=== PATIENT | male | born 1980 | race Caucasian/White ===

== ENCOUNTER 2023-03-02 06:02 | Inpatient (IN) ==
--- NOTE | 2023-02-06 12:53 | PAT Medication Instructions ---
Medication Instructions Date of Service February 06, 2023 Home Medications aripiprazole 10 mg tablet (Abilify) 10 mg PO HS buspirone 10 mg tablet 20 mg PO BID lamotrigine 100 mg tablet 100 mg PO BID losartan 50 mg tablet 50 mg PO QAM montelukast 10 mg tablet (Singulair) 10 mg PO PM omeprazole 40 mg capsule,delayed release 40 mg PO QAM propranolol 10 mg tablet 10 mg PO QAM topiramate 25 mg sprinkle capsule (Topamax) 25 mg PO UD ASK your prescriber and surgeon aripiprazole 10 mg tablet (Abilify) 10 mg PO HS DO NOT take the morning of surgery losartan 50 mg tablet 50 mg PO QAM Take morning of surgery With a small sip of water, OTHERWISE NOTHING TO EAT OR DRINK AFTER MIDNIGHT: buspirone 10 mg tablet 20 mg PO BID lamotrigine 100 mg tablet 100 mg PO BID omeprazole 40 mg capsule,delayed release 40 mg PO QAM propranolol 10 mg tablet 10 mg PO QAM topiramate 25 mg sprinkle capsule (Topamax) 25 mg PO UD Take evening before surgery buspirone 10 mg tablet 20 mg PO BID lamotrigine 100 mg tablet 100 mg PO BID montelukast 10 mg tablet (Singulair) 10 mg PO PM topiramate 25 mg sprinkle capsule (Topamax) 25 mg PO UD Other Notes If you have any questions please call us at [phone] or [phone] or [phone] or [phone]
--- NOTE | 2023-02-13 10:18 | Anesthesiology Consultation ---
Date of Service February 13, 2023 Assessment & Plan (1) Encounter for pre-operative examination: Chart Review Chart Review: Acceptable Risk for Surgery (pending UA results, PCP response regarding elevated creat, and most recent neuro note ) and Patient seen in Pre Admission Testing - Unable to void- patient give order and supplies- will drop off specimen at [facility] office - Please send optimization note to PCP regarding elevated creatinine ([facility] Cecy) - Please obtain most recent neuro note (follows with [facility] Dr. Mclean (not with [facility])) Per PAT appt on 02/13/23, no recent illness/disease exposures, illness related symptoms, or recent illness/disease positive tests. Will leave to surgeon's discretion if preop Covid testing needed Patient seen by PCP 02/08/23= seen for preop examination. Revised cardiac risk index no risk factors0.4% (95% CL: 0.1-0.8). Has sleep apneauses CPAP. Preoperative cardiovascular examinationpatient is optimized for surgery. EKG done in office. Patient's functional status is good (greater than 4 METS). Patient is low medical risk for listed procedure. Teaching & Discussion Pre-Anesthesia Teaching/Discussion Notes: Instructed NPO after midnight before surgery,except medications with 15 cc of water. Medication instructions provided according to the PAT guidelines. History Surgery Operation Date: 02/27/23 07:45 Proposed Procedures p L4-L5 Decompression and Fusion, L5-S1 Hardware Removal, Spinal Cord Monitoring - Dylan Galan, DO Height/Weight Height: 5 ft 11 in Weight: 111.4 kg Allergies Allergy/AdvReac Type Severity Reaction Status Date / Time No Known Allergies Allergy Unknown Verified 02/06/23 10:48 Medications Home Medications Medication Instructions Recorded Confirmed Last Taken aripiprazole 10 mg tablet (Abilify) 10 mg PO HS 02/06/23 02/06/23 Unknown buspirone 10 mg tablet 20 mg PO BID 02/06/23 02/06/23 Unknown lamotrigine 100 mg tablet 100 mg PO BID 02/06/23 02/06/23 Unknown losartan 50 mg tablet 50 mg PO QAM 02/06/23 02/06/23 Unknown montelukast 10 mg tablet 10 mg PO PM 02/06/23 02/06/23 Unknown (Singulair) omeprazole 40 mg capsule,delayed 40 mg PO QAM 02/06/23 02/06/23 Unknown release propranolol 10 mg tablet 10 mg PO QAM 02/06/23 02/06/23 Unknown topiramate 25 mg sprinkle capsule 25 mg PO UD 02/06/23 02/06/23 Unknown (Topamax) Past Medical History Medical History (Updated 02/13/23 @ 13:34 by Olivia Mcfadden PA-C) Dyslipidemia RLS (restless legs syndrome) Per PCP records DVT (deep venous thrombosis) 2019 per PCP records (patient had denied hx of blood clots at [facility] appt) Prediabetes Per PCP records Lumbar herniated disc GERD (gastroesophageal reflux disease) Well controlled and stable with medication Migraine Depression Anxiety Seizure Epileptic seizure per neuro records Last one was 2014 (had missed dose of Lamictal) Follow with neurology- [place] - Dr. Mclean - last seen several weeks ago Hypertension Sleep apnea cpap Asthma no inhalers- well controlled and stable History of COVID-19 2019 and resolved Exercise / Class Metabolic Activity II 4-5 Yardwork/Stairs/Walk up hill (one flight of stairs - no chest pain or SOB ) Past Surgical History Surgical History Hx of left inguinal hernia repair Hx laparoscopic cholecystectomy History of carpal tunnel release of both wrists History of ankle surgery right and left ankle shaved bone in ankles History of lumbar fusion Past Anesthesia History No Hx of Anesthesia Complications and No Family Hx of Anesthesia Complications History of PONV No Hx of PONV and No Hx of Motion Sickness Social History Smoking Status: Never smoker Do You Dip or Chew Tobacco: No Hx Alcohol Use: No Hx Substance Use: No substance use type: does not use Review of Systems Patient denies chest pain, shortness of breath, dyspnea on exertion, cough, wheezing, palpitations. No hx of stroke, IA. No hx of blood clots or blood transfusions Physical Exam Vital Signs VITALS BP 125/72 P 70 TEMP 98.2 SP02 96% RESP 16 Constitutional no acute distress ENMT Mouth: + small oral opening; no TMJ clicking Thyromental Distance: > or= 3.5 Finger Breadths (3.5) Mallampati Class: IV Missing side teeth Gap in between two front top teeth Neck neck extension not limited Respiratory normal respiratory effort; no respiratory distress Auscultation: lungs clear to auscultation bilaterally; no wheezes Cardiovascular Rate/Rhythm: regular rate and regular rhythm Heart Sounds: no murmur Vessels: no carotid bruit Musculoskeletal Spine: no pain with cervical ROM Extremities: extremities normal to inspection Psychiatric Orientation: alert Lab Results Anesthesia Preop Results Results Anesthesia Widget: WBC 5.45 K/ul (4.8-10.8) 02/13/23 Hgb 16.4 g/dl (14.0-18.0) 02/13/23 Hct 47.5 % (42.0-52.0) 02/13/23 Plt 224 K/uL (130-400) 02/13/23 Na 136 mmol/L (136-145) 02/13/23 K 3.6 mmol/L (3.5-5.1) 02/13/23 Cl 105 mmol/L (98-107) 02/13/23 CO2 24 mmol/L (21-32) 02/13/23 BUN 17 mg/dl (6-23) 02/13/23 Creat 1.55 mg/dl (0.6-1.4) H 02/13/23 Glucose Level 186 mg/dl (70-99(Fasting)) H 02/13/23 PT 11.2 Seconds (9.0-12.0) 02/13/23 PTT 27.4 Seconds (21.0-31.0) 02/13/23 INR 1.0 (0.9-1.1) 02/13/23 HA1c 5.8 % (4.5-5.6) H 02/13/23 Blood Type B Positive 02/13/23 Antibody Screen NEGATIVE 02/13/23 Testing Laboratory Results Elevated creatinine- optimization note sent to PCP Electrocardiogram Date: 02/08/23 Findings: + SB @ (59bpm) Otherwise normal EKG per cardio Chest X-Ray Date: 02/13/23 Findings: + NAD
[~2023-03-02 06:02] MED LIST: ACETAMINOPHEN 500 MG TAB PO SCH; CeleBREX 200 MG CAP PO SCH; GABAPENTIN 900 MG DOSE PO SCH; LR 15ML/HR IV SCH; LR 60ML/HR IV SCH; ceFAZolin 2000MG 2,000 MG/15 ML SYR IV SCH
[2023-03-02] MEDS ORDERED: ATROPINE SULFATE 0.1 MG/ML 10ML SYR IV PRN (06:57)
[2023-03-02] MEDS ORDERED: ePHEDrine sulfate 50 MG/ML AMP IV PRN (06:57)
[2023-03-02] MEDS ORDERED: HYDROmorphone INJ 1 MG/ML SYRINGE IV PRN ×2 (06:57→11:40)
[2023-03-02] MEDS ORDERED: ONDANSETRON INJ 2 MG/ML 2 ML VIAL IV PRN ×2 (06:57→11:40)
[2023-03-02] MEDS ORDERED: ONDANSETRON INJ 2 MG/ML 2 ML VIAL ONE (07:01)
[2023-03-02] MEDS ORDERED: LIDOCAINE 2% 2 ML VIAL/AMP(20MG/ML) INFIL ONE (07:01)
[2023-03-02] MEDS ORDERED: fentaNYL citrate PF 100 MCG/2 ML VIAL ONE (07:01)
[2023-03-02] MEDS ORDERED: PROPOFOL IV EMULSION 10 MG/ML 20 ML VIAL IV ONE (07:01)
[2023-03-02] MEDS ORDERED: DEXAMETHASONE SOD INJ 4 MG/ML VIAL ONE (07:01)
[2023-03-02] MEDS ORDERED: MIDAZOLAM HCL 1 MG/ML 2ML VIAL ONE (07:01)
[2023-03-02] MEDS ORDERED: GLYCOPYRROLATE 0.2 MG/ML VIAL ONE (07:26)
--- NOTE | 2023-03-02 07:40 | History & Physical Bridge Note ---
Date of Service March 02, 2023 History & Physical Bridge Note I have examined the patient, reviewed the History & Physical and in the interval since the performance of the History & Physical I have noted the following changes of clinical significance: no changes noted
--- NOTE | 2023-03-02 07:41 | History & Physical Report ---
Date of Service March 02, 2023 Assessment & Plan (1) Neurogenic claudication due to lumbar spinal stenosis: Plan: L4-5 decompression and fusion, L5-S1 hardware removal History of Present Illness Chief Complaint: Back and leg pain Primary Care Provider: Bernardino Holley MD This is a 42-year-old male who presents with chronic persistent back and leg pain after failing course of nonoperative care is here for surgical invention. Allergies Allergy/AdvReac Type Severity Reaction Status Date / Time No Known Allergies Allergy Unknown Verified 03/02/23 06:27 Home Medications Medication Instructions Recorded Confirmed Type aripiprazole 10 mg tablet (Abilify) 10 mg PO HS 02/06/23 03/02/23 History buspirone 10 mg tablet 20 mg PO BID 02/06/23 03/02/23 History lamotrigine 100 mg tablet 100 mg PO BID 02/06/23 03/02/23 History losartan 50 mg tablet 50 mg PO QAM 02/06/23 03/02/23 History montelukast 10 mg tablet 10 mg PO PM 02/06/23 03/02/23 History (Singulair) omeprazole 40 mg capsule,delayed 40 mg PO QAM 02/06/23 03/02/23 History release propranolol 10 mg tablet 10 mg PO QAM 02/06/23 03/02/23 History topiramate 25 mg sprinkle capsule 25 mg PO UD 02/06/23 03/02/23 History (Topamax) Past Med/Surg History Medical History (Updated 03/02/23 @ 07:41 by Dylan Galan DO) Dyslipidemia RLS (restless legs syndrome) Per PCP records DVT (deep venous thrombosis) 2019 per PCP records (patient had denied hx of blood clots at [facility] appt) Prediabetes Per PCP records Lumbar herniated disc GERD (gastroesophageal reflux disease) Well controlled and stable with medication Migraine Depression Anxiety Seizure Epileptic seizure per neuro records Last one was 2014 (had missed dose of Lamictal) Follow with neurology- [place] [facility] - Dr. Mclean - last seen several weeks ago Hypertension Sleep apnea cpap Asthma no inhalers- well controlled and stable History of COVID-19 2019 and resolved Surgical History Hx of left inguinal hernia repair Hx laparoscopic cholecystectomy History of carpal tunnel release of both wrists History of ankle surgery right and left ankle shaved bone in ankles History of lumbar fusion Social History Smoking Status: Never smoker Second Hand Exposure: No; Do You Dip or Chew Tobacco: No; Tobacco Cessation Education Requested by Patient: No Hx Alcohol Use: No Hx Substance Use: No Preferred Language: Syriac Communication Ability: Effective Exhibit Preparator Required: No Beliefs That Will Affect Care: None Current Living Situation: Family Other Information That Helps Us Care for You: No Feels Safe at Home: Yes Safety Concerns: Feels Safe At This Time Assistive Devices: Glasses Physical Exam Physical Exam: Patient is alert and oriented Heart regular in rhythm Lungs clear Results & Data Results & Data Vital Signs (Past 12 Hours) Vital Signs Temp Pulse Resp BP Pulse Ox O2 Del Method 03/02/23 06:25 36.8 C 62 20 157/92 H 99 Room Air
[2023-03-02] MEDS ORDERED: BUPIVACAINE/EPINEPHRINE 0.25% 1:200,000 30 ML VIAL ONE (07:42)
[2023-03-02] MEDS ORDERED: ceFAZolin 330 MG/ML 1 GM VIAL ONE (07:42)
[2023-03-02] MEDS ORDERED: HYDROmorphone INJ 2 MG/ML SYR/VIAL ONE (08:12)
[2023-03-02] MEDS ORDERED: ROCURONIUM BROMIDE 10 MG/ML 5 ML VIAL IV ONE (08:51)
[2023-03-02] MEDS ORDERED: SUGAMMADEX SODIUM 200 MG/2 ML VIAL IV ONE (10:01)
[2023-03-02] MEDS ORDERED: ePHEDrine sulfate 50 MG/5 ML SYR ONE (10:01)
--- NOTE | 2023-03-02 10:12 | Operative Report ---
Post Operative Report Pre & Post Diagnosis Operation Date: 03/02/23 07:45 Pre-Op Diagnosis: Neurogenic claudication due to lumbar spinal stenosis Post-Op Diagnosis: Neurogenic claudication due to lumbar spinal stenosis I identified the patient and participated in the time-out.: Yes Procedure Operation Date: 03/02/23 07:45 Actual Procedures #1 removal of posterior instrumentation L5-S1. #2 exploration of fusion L5-S1. #3 decompression L3-L4 L4-5. #4 posterior spinal fusion L4-5 #5 placement posterior instrumentation L4-S1. #6 interbody fusion L4-5 per #7 placement spiral 14 x 26 mm L4-5 #8 placement locally harvested morselized autograft posterior gutters. #9 placement of I factor interbody space and infuse collagen sponge, mass graft in the posterior lateral gutters. Surgeon Dylan Galan, DO Director Ship Sai Hunt Estimated Blood Loss 300 Findings See Below The patient is 5 foot 11 weighing over 111 kg with a BMI in excess of 34. Patient's body habitus did contribute to significant technical difficulty Specimens None Indications This is a 42-year-old male who presents above-mentioned diagnosis of failed course of nonoperative care is here for surgical invention. Description of Procedure Patient was met with identified informed consent obtained. Patient was then taken to the operative suite underwent intubation placed in a prone position on the Jimenez table top Yariel frame. All bony promises well-padded I suspected to ensure no external precipice spinal. This point lumbar spine was prepped and draped in normal sterile fashion. Sharp dissection with the assistance bradycardia form down to and exposing the lamina transverse processes of L4 and the instrumentation L5-S1. I then proceeded with the end caps and rods bilaterally. The screws the screws were frozen frozen in place several levels but I was able to successfully remove the L4 pedicle screw on the right without significant distraction of the bone graft. I then performed a complete laminectomy of L4 partial laminectomy L3 including bilateral medial facetectomies and foraminotomies addressing severe spinal stenosis. by way of transforaminal approach right complete discectomy of L4-5 was performed endplates curetted to subcortical bone bone and a 14 x 26 mm Spira cage with I factor tapped in position. The rods were then compressed locked in final position bilaterally. The transverse processes of L4 and L5 burred to subcortical bleeding bone. Infuse collagen sponge, mass graft and local autograft placed in the posterior gutters. 15 round ADI inserted. The incision was then closed with 1 Vicryl to fascia 2-0 Vicryl subcutaneously and 4 Monocryl for final skin closure. Steri-Strips sterile dressing placed. Patient waken taken to PACU stable condition. . Sai Hunt was present that the entire surgeon while the patient positioning complex portions of the surgery and final skin closure. I attest to the content of the Intraoperative Record and any orders documented therein. Any exceptions are noted below.
[2023-03-02] MEDS ORDERED: FLOSEAL HEMOSTATIC MATRIX 10ML TOP ONE (10:19)
[2023-03-02] MEDS ORDERED: hydrOXYzine HCl 25 MG TAB PO PRN (11:40)
[2023-03-02] MEDS ORDERED: ALUMINUM/MAGNESIUM SUSP 30 ML UDC PO PRN (11:40)
[2023-03-02] MEDS ORDERED: ONDANSETRON 4 MG OD TAB PO PRN (11:40)
[2023-03-02] MEDS ORDERED: HYDROmorphone INJ 0.5 MG/0.5 ML SYR IV PRN (11:40)
[2023-03-02] MEDS ORDERED: bisacodyL 10 MG SUPP PR PRN (11:40)
[2023-03-02] MEDS ORDERED: ACETAMINOPHEN 1,000 MG/100 ML VIAL IV PRN (11:40)
[2023-03-02] MEDS ORDERED: METOCLOPRAMIDE HCL INJ 5 MG/ML 2 ML VIAL IV PRN (11:40)
[2023-03-02] MEDS ORDERED: DO NOT ADMINISTER PNEUMOCOCCAL VACCINE PRN (11:40)
[2023-03-02] MEDS ORDERED: NALOXONE HCL 0.4 MG/1 ML VIAL/CARP IV PRN (11:40)
[2023-03-02] MEDS ORDERED: PROMETHAZINE HCL 12.5 MG in SODIUM CHLORIDE 0.9% 50 ML IV PRN (11:40)
[2023-03-02] MEDS ORDERED: DO NOT ADMINISTER FLU VACCINE PRN (11:40)
[2023-03-02] MEDS ORDERED: ACETAMINOPHEN 500 MG TAB PO PRN (11:40)
[2023-03-02] MEDS ORDERED: oxyCODONE HCL IR 5 MG TAB (IMMEDIATE RELEASE) PO PRN (11:40)
[2023-03-02] MEDS ORDERED: FAMOTIDINE 20 MG TAB PO PRN (11:40)
[2023-03-02] MEDS ORDERED: diphenhydrAMINE Capsule 25 MG CAP PO PRN (11:40)
[2023-03-02] MEDS ORDERED: MAGNESIUM HYDROXIDE SUSP 30 ML UDC PO PRN (11:40)
[2023-03-02] MEDS ORDERED: LORazepam 0.5 MG in SYRINGE 0.25 ML IV PRN (11:40)
[2023-03-02] MEDS ORDERED: SOD PHOSPHATE/SOD BIPHOSPHATE ENEMA 132 ML BTL PR PRN (11:40)
[2023-03-02] MEDS ORDERED: LORazepam 0.5 MG TAB PO PRN (11:40)
[2023-03-02] MEDS: LACTATED RINGER'S 1,000 ML IV SCH ×2 (11:45→18:24)
--- NOTE | 2023-03-02 11:48 | Anesthesiology Progress Note ---
Date of Service March 02, 2023 Anesthesia Post Procedure Vital Signs Vital Signs: Temp Pulse Resp BP Pulse Ox O2 Del Method O2 Flow Rate 03/02/23 11:20 71 12 133/78 94 Nasal Cannula 4 03/02/23 11:10 36.8 C 79 15 131/79 95 Nasal Cannula 4 03/02/23 11:00 76 12 136/76 95 Nasal Cannula 4 03/02/23 10:50 85 15 125/83 96 Nasal Cannula 4 03/02/23 10:40 71 12 127/80 97 Oxymask 9 03/02/23 10:33 36.3 C L 85 14 133/91 96 Oxymask 9 03/02/23 06:25 36.8 C 62 20 157/92 H 99 Room Air Pain Intensity Lower Back: Pain Intensity: 7 Back: Pain Intensity: 4 Transfer of Care Handoff Completed per policy Notes Mental Status: alert / awake / arousable Patient Amnestic to Procedure: Yes Nausea / Vomiting: adequately controlled Pain: adequately controlled Airway Patency, RR, SpO2: stable & adequate BP & HR: stable & adequate Hydration State: stable & adequate Anesthetic Complications: no major complications apparent and Pt Satisfied with anesthetic care
--- NOTE | 2023-03-02 11:58 | Internal Medicine Consult Note ---
Date of Consultation March 02, 2023 Assessment & Plan (1) Neurogenic claudication due to lumbar spinal stenosis: Lumbar spinal stenosis with neurogenic claudication S/P lumbar surgery by Dr. Galan on 03/02/2023 POD # 0 Pain is controlled Monitor for post OP anemia Bowel regimen to prevent constipation Activity & DVT Px and wound Care as per Primary team Continue IV fluids PT/OT as able Fall precautions Seizure disorder Schizoaffective disorder Mood disorder Last seizure many years ago Continue home medication Hypertension Continue losartan GERD Continue PPI Obesity BMI 34 JILL Continue CPAP HS DVT Px: SCDs per Primary team Code Status Full Code History of Present Illness Reason for Consultation: Post Op medical management Requesting Physician: Attending Physician: Dylan Galan, DO History of Present Illness Patient is a 42-year-old male with history of seizure disorder, obesity, hypertension, hyperlipidemia, GERD, schizoaffective disorder, erectile dysfunction, JILL on CPAP, asthma, restless leg syndrome, anxiety disorder and other medical problems was consulted for postop medical management. Patient had back surgery for neurogenic claudication due to lumbar spinal stenosis by Dr. Galan. Patient states having right thigh pain radiating from the back postoperatively. Denies any significant back pain at surgical site. Otherwise feels well. Denies any history of chest pain, dyspnea, dizziness, pedal edema, cough, fever, chills, headache, weakness, numbness, change in vision, nausea, vomiting, abdominal pain, diarrhea. Allergies Allergy/AdvReac Type Severity Reaction Status Date / Time No Known Allergies Allergy Unknown Verified 03/02/23 06:27 Home Medications Medication Instructions Recorded Confirmed Type aripiprazole 10 mg tablet (Abilify) 10 mg PO HS 02/06/23 03/02/23 History buspirone 10 mg tablet 20 mg PO BID 02/06/23 03/02/23 History lamotrigine 100 mg tablet 100 mg PO BID 02/06/23 03/02/23 History losartan 50 mg tablet 50 mg PO QAM 02/06/23 03/02/23 History montelukast 10 mg tablet 10 mg PO PM 02/06/23 03/02/23 History (Singulair) omeprazole 40 mg capsule,delayed 40 mg PO QAM 02/06/23 03/02/23 History release propranolol 10 mg tablet 10 mg PO QAM 02/06/23 03/02/23 History topiramate 25 mg sprinkle capsule 25 mg PO UD 02/06/23 03/02/23 History (Topamax) Patient History Medical History Dyslipidemia RLS (restless legs syndrome) Per PCP records DVT (deep venous thrombosis) 2019 per PCP records (patient had denied hx of blood clots at [facility] appt) Prediabetes Per PCP records Lumbar herniated disc GERD (gastroesophageal reflux disease) Well controlled and stable with medication Migraine Depression Anxiety Seizure Epileptic seizure per neuro records Last one was 2014 (had missed dose of Lamictal) Follow with neurology- [place] [facility] - Dr. Mclean - last seen several weeks ago Hypertension Sleep apnea cpap Asthma no inhalers- well controlled and stable History of COVID-19 2019 and resolved Surgical History Hx of left inguinal hernia repair Hx laparoscopic cholecystectomy History of carpal tunnel release of both wrists History of ankle surgery right and left ankle shaved bone in ankles History of lumbar fusion Social History Smoking Status: Never smoker Second Hand Exposure: No; Do You Dip or Chew Tobacco: No; Tobacco Cessation Education Requested by Patient: No Hx Alcohol Use: No Hx Substance Use: No Preferred Language: Bulgarian Communication Ability: Effective Field Recruiter Required: No Beliefs That Will Affect Care: None Current Living Situation: Family Other Information That Helps Us Care for You: No Feels Safe at Home: Yes Safety Concerns: Feels Safe At This Time Assistive Devices: Glasses Review of Systems Review of Systems: All systems reviewed & are unremarkable except as noted in Subjective Physical Exam Physical Exam: Physical Exam: Vitals signs as noted above General Appearance:Obese, no apparent distress Head: normocephalic, Atraumatic Eyes: normal inspection, EOMI Neck: supple, Trachea midline Respiratory/Chest: Normal breath sounds, CTA, No accessory muscle use Cardiovascular: S1, S2, No murmur Abdomen/GI:Soft, Non tender, Bowel sounds present Back: Surgical site in dressing Extremities/Musculoskeletal:normal inspection, no edema Neurologic/Psych:AAOX3, grossly no focal neurological deficits Skin: normal color, warm Results & Data Vital Signs (Past 12 Hours) Vital Signs Temp Pulse Resp BP Pulse Ox O2 Del Method O2 Flow Rate 03/02/23 11:20 71 12 133/78 94 Nasal Cannula 4 03/02/23 11:10 36.8 C 79 15 131/79 95 Nasal Cannula 4 03/02/23 11:00 76 12 136/76 95 Nasal Cannula 4 03/02/23 10:50 85 15 125/83 96 Nasal Cannula 4 03/02/23 10:40 71 12 127/80 97 Oxymask 9 03/02/23 10:33 36.3 C L 85 14 133/91 96 Oxymask 9 03/02/23 06:25 36.8 C 62 20 157/92 H 99 Room Air
[2023-03-02] MEDS: traMADol HCL 50 MG TABLET PO PRN (12:58)
--- NOTE | 2023-03-02 14:36 | Fluoroscopy Report ---
FL lumbar spine 2-3V CLINICAL HISTORY: L4-L5 DFI L5-S1 HARDWARE REMOVAL COMPARISON STUDY: 12/26/2007 FLUOROSCOPY TIME: 15.5 seconds FLUOROSCOPY IMAGES: 2 EXPOSURE DOSE: 13.31 mGy FINDINGS: Posterior interbody rods and screw fusion with discectomy at L4-S1. The hardware appears in tact. No unexpected opaque foreign bodies. IMPRESSION: Fluoroscopic assistance as above. ACT 112: Negative or not required by law. Electronically signed by: Bob May M.D. 03/02/2023 2:35 PM
[2023-03-02] MEDS: ceFAZolin 2000MG 2,000 MG/15 ML SYR IV SCH ×2 (17:02→22:52)
[2023-03-02] MEDS: MONTELUKAST SODIUM 10 MG TABLET PO SCH (20:02)
[2023-03-02] MEDS: busPIRone 5 MG TAB PO SCH (20:02)
[2023-03-02] MEDS: TOPIRAMATE 50 MG TAB PO SCH (20:02)
[2023-03-02] MEDS: DOCUSATE SODIUM/SENNA 50/8.6MG TAB PO SCH (20:03)
[2023-03-02] MEDS: lamoTRIgine 100 MG TAB PO SCH (20:03)
[2023-03-02] MEDS: ARIPiprazole 10 MG TAB PO SCH (20:03)
--- OUTSIDE RECORDS SUMMARY | 2023-03-02 21:10 | External Medical Summary | Summary of Care ---
Author Name Unknown Organization [facility] Address [address] [place] [address] Phone [phone] Care Team Providers Care Human Services Program Specialist Name Role Phone Bernardino Holley MD Primary Care Provider [phone] Reason for Visit * Reason Onset Date Comments Encounter Created in Error 02/15/2023 Encounter Details Date Type Department Care Team (Late st Contact Info) Description 02/15/2023 Telephone [facility], [place] [address] [place] [address] Bernardino Holley MD [address] [place] [address] Encounter Created in Error Allergies No known active allergiesdocumented as of this encounter (statuses as of 02/15/2023) Medications Medication Sig Dispensed Refills Start Date End Date Status LAMOTRIGINE 100 MG PO TABS One pill twice daily 0 06/15/2014 Active topiramate (TOPAMAX) 25 MG TABS Take 1 Tablet by mouth in the morning and 1 Tablet before bedtime. 60 Tab 0 07/20/2015 Active Respiratory Therapy Supplies AGUSTIN Use as directed. CPAP 17 cm at bedtime daily 0 Active Albuterol Sulfate HFA 108 (90 Base) MCG/ACT Inhalation Aerosol SolutionIndications: Mild persistent asthma without complication 2 puffs by mouth every 4-6 hrs as needed 18 g 3 04/19/2020 Active ARIPiprazole 10 MG Oral Tablet (Abilify) Take 1 Tablet by mouth every evening. 0 06/06/2021 Active CPAP every night at bedtime . 11 0 Active DULoxetine HCl 30 MG Oral Capsule Delayed Release Particles (Cymbalta) Take 1 Capsule by mouth in the morning. 0 10/07/2021 Active Montelukast Sodium 10 MG Oral Tablet (Singulair)Indicatio ns:Moderate persistent asthma TAKE ONE TABLET BY MOUTH EVERY night AT BEDTIME 30 Tablet 11 03/29/2022 Active Sildenafil Citrate 100 MG Oral Tablet (Viagra) Take 1 Tablet by mouth daily as needed for Erectile Dysfunction. As directed. 10 Tablet 11 06/15/2022 Active Losartan Potassium 50 MG Oral Tablet (Cozaar) TAKE 1 TABLET BY MOUTH ONCE DAILY IN THE MORNING 90 Tablet 1 08/29/2022 Active Omeprazole 40 MG Oral Capsule Delayed Release (PriLOSEC)Indication s:Gastroesophageal reflux disease, unspecified whether esophagitis present Take 1 Capsule by mouth in the morning. 90 Capsule 3 08/29/2022 Active Propranolol HCl 10 MG Oral Tablet (Inderal) as needed. 0 10/17/2022 Active Sucralfate 1 GM Oral Tablet (Carafate)Indication s:Odynophagia,Gastro esophageal reflux disease, unspecified whether esophagitis present Take 1 Tablet by mouth in the morning and 1 Tablet at noon and 1 Tablet in the evening and 1 Tablet before bedtime. Make into a slurry before swallowing. 120 Tablet 3 11/07/2022 Active busPIRone HCl 10 MG Oral Tablet (Buspar) Take 2 Tablets by mouth in the morning and 2 Tablets before bedtime. 0 02/06/2023 Active Nystatin 680010 UNIT/ML Mouth/Throat SuspensionIndication s:Oral thrush Swish and swallow 5 mL in the morning and 5 mL at noon and 5 mL in the evening and 5 mL before bedtime. Do all this for 14 days. For thrush.. 280 mL 2 02/14/2023 02/28/2023 Active documented as of this encounter (statuses as of 02/15/2023) Active Problems Problem Noted Date Diagnosed Date Class 2 severe obesity due t o excess calories with serious comorbidity and body mass index (BMI) of 35.0 to 35.9 in adult 12/21/2020 Erectile dysfunction 12/21/2020 Dermatitis of both ear canals 12/21/2020 Nonintractable generalized i diopathic epilepsy without status epilepticus 12/24/2015 Asthma, moderate persistent 07/19/2015 JILL on CPAP 07/06/2014 HTN, goal below 140/90 02/07/2012 Dyslipidemia 02/07/2012 Gastroesophageal reflux disease with esophagitis 02/07/2012 Anxiety 02/07/2012 Schizoaffective disorder 02/07/2012 Other specified forms of hearing loss 06/13/2010 documented as of this encounter (statuses as of 02/15/2023) Resolved Problems Problem Noted Date Diagnosed Date Resolved Date Prediabetes 07/11/2021 08/09/2022 Overview: Per Prediabetes protocol Acute deep vein thrombosis ( DVT) of distal vein of lower extremity 09/18/2019 07/05/2021 Idiopathic neuropathy 02/06/20182019 Numerous moles 08/18/2015 06/12/2019 Overview: Suggest every third year surveillance by [employer] starting 2018 Mild persistent asthma without complication 01/07/2015 07/19/2015 RLS (restless legs syndrome) 12/15/2014 06/12/2019 AC INFECT NEGOTIATIONS DIRECTOR EAR,RIGHT 06/13/2010 1 04/08/2017 Chronic rhinitis 06/13/2010 11/20/2018 Esophageal reflux 06/13/2010 02/06/2018 Subjective tinnitus 06/13/2010 06/12/19 20 Encounter for dietary counse ling and surveillance 02/06/2018 Overview: ICD-10 update of inactive term Lumbago 06/12/2019 Asthma 07/19/2015 Overview: ICD-10 update of inactive term documented as of this encounter (statuses as of 02/15/2023) Immunizations Name Administration Dates Next Due DTP Vaccine 04/20/1987, 5,04/13/1983,02/09,1982 H1N1 2009 Influenza, IM 03/15/2009 HIB PRP-T, 4 dose (ActHib) 07/04/1985 Hepatitis B, 0-19 yrs 11/30/1997,09/30/1997,07/02 MMR - Measles/Mumps/Rubella Vaccine 10/10/1994,1 04/16/1983 OPV - Polio Virus Vaccine (Oral) 988,08/28/1984,04/13/1983,02/09,1982 Pneumococcal Polysaccharide PPV23 (Pneumovax) 12/18/2012 Seasonal Influenza, Split, I IV3, With Preserve, Inj 12/18/2012,12/02/2010,03/15/2009 TDAP (age 10 and older)(Boostrix) 03/11/2019 TDAP (age 11 and older)(Adacel) 10/30/2007 documented as of this encounter Social History Tobacco Use Types Packs/Day Years Used Date Smoking Tobacco: Never Passive Smoke Exposure: Past Smokeless Tobacco: Never Alcohol Use Standard Drinks/Week Comments Not Currently 0 (1 standard drink = 0.6 oz pure alcohol) Rare 1-2 times per year Beer or Mixed Drinks PHQ-2 Answer Date Recorded PHQ Adult Total Score 1 02/06/2022 Hunger Vital Sign Answer Date Recorded Within the past 12 months, y ou worried that your food would run out before you got the money to buy more. Never true 08/08/19 23 Within the past 12 months, t he food you bought just didn't last and you didn't have money to get more. Never true 08/07/2022 Sex and Gender Information Value Date Recorded Sex Assigned at Male 05/02/2019 10:53 AM EST Gender Identity Male 05/02/2019 10:53 AM EST Sexual Orientation Straight 05/02/2019 10 :53 AM EST Job Start Date Occupation Industry Not on file Not on file Not on file documented as of this encounter Functional Status Functional Status Response Date of Assess ment Are you deaf or do you have serious difficulty hearing? No 05/01/2014 Are you blind or do you have serious difficulty seeing, even when wearing glasses? No 05/01/19 15 Do you have serious difficul ty walking or climbing stairs? (5 years old or older) No 05/01/2014 Do you have difficulty dress ing or bathing? (5 years old or older) No 05/01/2014 Because of a physical, menta l, or emotional condition, do you have difficulty doing errands alone such as visiting a doctor s office or shopping? (15 years old or older) Yes-unable to drive 05/01/19 15 Cognitive Status Response Date of Assessm ent Because of a physical, menta l, or emotional condition, do you have serious difficulty concentrating, remembering, or making decisions? (5 years old or older) Yes-memory 05/01/2014 documented as of this encounter Miscellaneous Notes * Telephone Encounter - Angela Byers OSA - 02/15/2023 9:27 AM EST documented in this encounter Plan of Treatment Upcoming Encounters Date Type Department Care Team (Late st Contact Info) Description 05/11/2023 1:00 PM EST Office Visit [facility], [place] [address] [place] [address] Keyanna Miles PA-C [address] [place] [phone] 08/23/2023 12:20 PM EDT Office Visit [facility] [address] [place] [address] Bernardino Holley MD [address] [facility] [place] [address] Health Maintenance Due Date Last Done Comments COVID-19 Vaccine (#1) 03/21/1983 Pneumococcal Vaccine: Pediatrics (0 to 5 Years) and At-Risk Patients (6 to 64 Years) (2 - PCV) 12/18/2013 12/18/2012 Influenza Vaccine (FLU shot) (#1) 2022 12/18/2012, 12/02/2010, 03/15/2009, Additional history exists Depression Screening 02/06/2023 02/06/2022 GFR 02/14/2024 02/13/2023, 04/2021, 07/01/2021, Additional history exists Albumin/Creatinine Ratio 02/08/2025 02/08/2022 Diabetes Screening 02/13/2026 02/13/2023, 0 07/27/2022, 01/31/2022, Additional history exists Lipid Panel 01/31/2027 01/31/2022, 0 04/2021, 02/09/2021, Additional history exists DTaP,Tdap,and Td Vaccines (8 - Td or Tdap) 03/11/2029 03/11/2019, 10/30/2007, 04/20/1987, Additional history exists Hepatitis B Completed 11/30/1997, 04/1997, 07/29/1997 Hepatitis C Screening Completed 06/23/2017, 015 GARDASIL-HPV IMMUNIZATION SERIES Aged Out No longer eligible based on patient's age to complete this topic MENINGOCOCCAL (MENACTRA/MENVEO) Aged Out No longer eligible based on patient's age to complete this topic documented as of this encounter Medical Devices Not on filedocumented as of this encounter Care Teams Human Services Program Specialist Relationship Specialty Start Date End Date Bernardino Holley MD [address] [facility] [place] [address] PCP - General Family Medicine 12/21/20 documented as of this encounter
--- OUTSIDE RECORDS SUMMARY | 2023-03-02 21:10 | External Medical Summary | Summary of Care ---
Author Name Unknown Organization [facility] Address [address] [place] [address] Phone [phone] Care Team Providers Care Electric Hoist Operator Name Role Phone Bernardino Holley MD Primary Care Provider [phone] Reason for Visit * Reason Onset Date Comments FYI 02/15/2023 Labs are abnorma l for surgery Encounter Details Date Type Department Care Team (Late st Contact Info) Description 02/15/[address] [facility], [place] [address] [facility] [place] [address] Bernardino Holley MD [address] [facility] [place] [address] (Labs are abnormal for surgery) Allergies No known active allergiesdocumented as of [...] Tablets before bedtime. 0 02/06/2023 Active Nystatin 684819 UNIT/ML Mouth/Throat SuspensionIndication s:Oral thrush Swish and [...] Overview: Suggest every third year surveillance by [employer] starting 2018 Mild persistent asthma without complication 01/07/2015 07/19/2015 RLS (restless legs syndrome) 12/15/2014 06/12/2019 AC INFECT CARD STRIPPER EAR,RIGHT 06/13/2010 1 04/08/2017 Chronic rhinitis 06/13/2010 [...] encounter Miscellaneous Notes * Telephone Encounter - Bernardino Holley MD - 02/15/2023 2:34 PM EST This should not come in the way of surgery. Can discuss the abnormal creatinine at next appointment * Telephone Encounter - Ijeoma Navas OSA - 02/15/2023 9:41 AM EST Images from the original note were not included. CREATININE-OUTSIDE LAB 0.6 - 1.4 MG/DL 1.55 Abnormal Labs are abnormal for surgery, does patient need a complete lab panel to be able to have surgery on02/27? Please contact anesthesia to confirm. documented in this encounter Plan of Treatment Upcoming Encounters Date Type Department Care Team (Late st Contact Info) Description 05/11/2023 1:00 PM EST Office Visit Gastroenterology, [address] [address] Keyanna Miles PA-C [address] [place] [address] 08/23/2023 12:20 PM EDT Office Visit [facility] Cecy Lynn [address] [facility] [place] [address] Bernardino Holley MD [address] [facility] [place] [address] Health Maintenance Due Date Last Done Comments [...] Additional history exists Lipid Panel 01/31/2027 01/31/2022, 04/2021, 02/09/2021, Additional history exists DTaP,Tdap,and Td [...] filedocumented as of this encounter Care Teams Electric Hoist Operator Relationship Specialty Start Date End Date Bernardino Holley MD [address] [facility] [place] [address] PCP - General Family Medicine 12/21/20 documented as of this encounter
[2023-03-03] MEDS: LACTATED RINGER'S 1,000 ML IV SCH (00:31)
[2023-03-03] MEDS: traMADol HCL 50 MG TABLET PO PRN ×2 (03:29→20:08)
[2023-03-03] MEDS: POLYETHYLENE (MIRALAX) 17 GM PACK PO SCH ×4 (05:29→23:54)
[2023-03-03 07:54] LABS: Basophils # (auto) 0.03 K/uL (0.00-0.20); Basophils % (auto) 0.3 %; Eosinophils # (auto) 0.01 K/uL (0.00-0.50); Eosinophils % (auto) 0.1 %; Hematocrit (blood only) 41.2 % (42.0-52.0); Hemoglobin 13.8 g/dl (14.0-18.0); Immature Granulocytes # (auto) 0.07 K/uL (0.01-0.20); Immature Granulocytes % (auto) 0.6 %; Lymphocytes # (auto) 1.68 K/uL (1.20-3.40); Lymphocytes % (auto) 15.5 %; Mean Corpuscular Hemoglobin 29.1 pg (25.0-34.0); Mean Corpuscular Hgb Conc 33.5 g/dL (32.0-36.0); Mean Corpuscular Volume 86.7 fL (80.0-100.0); Monocytes # (auto) 1.15 K/uL (0.11-0.59); Monocytes % (auto) 10.6 %; Neutrophils # (auto) 7.93 K/uL (1.40-6.50); Neutrophils % (auto) 72.9 %; Platelet Count 194 K/uL (130-400); RDW Coefficient of Variation 12.8 % (11.5-14.5); RDW Standard Deviation 40.4 fL (36.4-46.3); Red Blood Count 4.75 M/uL (4.70-6.10); White Blood Count 10.87 K/ul (4.8-10.8)
[2023-03-03 07:55] LABS: Calcium 8.6 mg/dl (8.6-10.3); Creatinine Clr Calc Pharmacy 114.5 ml/min; Est GFR (African American) 97.9 ml/min; Est GFR (Non-African American) 84.5 ml/min; Magnesium 1.5 mg/dl (1.7-2.4); Potassium 3.8 mmol/L (3.5-5.1)
--- NOTE | 2023-03-03 08:42 | Orthopedic Progress Note ---
Date of Service March 03, 2023 Assessment & Plan (1) Neurogenic claudication due to lumbar spinal stenosis: Plan: At this time initiate physical therapy monitor his ADI operatively discharge home in the next few days. Admission and Anticipated Discharge Date Admission Date: March 02, 2023 Subjective Back pain controlled leg pain improved. Patient has been up and ambulating. Physical Exam Physical Exam: Patient is constricted testing peers comfortable. Results & Data Vital Signs (Past 12 Hours) Vital Signs Temp Pulse Resp BP Pulse Ox O2 Del Method 03/03/23 08:14 37.2 C 72 16 130/84 99 Room Air 03/03/23 03:41 36.5 C 71 16 120/70 97 Room Air 03/02/23 23:08 Room Air 03/02/23 22:52 37.0 C 85 16 125/77 96 Room Air Queries Orthopedic Spine Obesity: Yes
[2023-03-03] MEDS: dexAMETHasone 6 MG in SYRINGE 0 ML IV SCH (09:21)
[2023-03-03] MEDS: PANTOprazole 40 MG TAB PO SCH (09:21)
[2023-03-03] MEDS: TOPIRAMATE 25 MG TAB PO SCH (09:21)
[2023-03-03] MEDS: LOSARTAN POTASSIUM 50 MG TAB PO SCH (09:22)
[2023-03-03] MEDS: busPIRone 5 MG TAB PO SCH ×2 (09:22→20:10)
[2023-03-03] MEDS: lamoTRIgine 100 MG TAB PO SCH ×2 (09:22→20:09)
[2023-03-03] MEDS: PROPRANOLOL HCL 10 MG TAB PO SCH (09:22)
--- NOTE | 2023-03-03 11:19 | Hospitalist Progress Note ---
Date of Service March 03, 2023 Assessment & Plan (1) Neurogenic claudication due to lumbar spinal stenosis: Plan: Patient is a 42-year-old male with history of seizure disorder, obesity, hypertension, hyperlipidemia, GERD, schizoaffective disorder, erectile dy sfunction, JILL on CPAP, asthma, restless leg syndrome, anxiety disorder who is s/p lumbar surgery by Dr. Galan on 03/02/2023. Lumbar spinal stenosis with neurogenic claudication S/P lumbar surgery by Dr. Galan on 03/02/2023 POD #1 Pain is controlled Post OP anemia stable Bowel regimen to prevent constipation Activity & DVT Px and wound Care as per Primary team IV fluids discontinued PT/OT Fall precautions Seizure disorder Schizoaffective disorder Mood disorder Last seizure many years ago Continue home medication Hypertension Continue losartan GERD Continue PPI Obesity BMI 34 JILL Continue CPAP HS Diet: Regular DVT Px: SCDs per Primary team Code Status: Full Code Admission and Anticipated Discharge Date Admission Date: March 02, 2023 Subjective Pt seen while sitting in chair at bedside. Denied acute concerns. Review of Systems Review of Systems: All systems reviewed & are unremarkable except as noted in Subjective Physical Exam Physical Exam: General: Alert, oriented. No acute distress Skin: No noted rashes or bruises Psych: Appropriate mood and affect Neuro: Difficulty leaning forward HEENT: NC/AT Chest: Nontender to palpation. CV: RRR Resp: Breath sounds clear bilaterally Abdomen: Soft, nontender, nondistended. Extremities: No edema in lower extremities bilaterally. Results & Data Results & Data Vital Signs (Past 12 Hours) Vital Signs Temp Pulse Resp BP Pulse Ox O2 Del Method 03/03/23 08:14 37.2 C 72 16 130/84 99 Room Air 03/03/23 03:41 36.5 C 71 16 120/70 97 Room Air
[2023-03-03] MEDS: DOCUSATE SODIUM/SENNA 50/8.6MG TAB PO SCH (20:09)
[2023-03-03] MEDS: TOPIRAMATE 50 MG TAB PO SCH (20:09)
[2023-03-03] MEDS: ARIPiprazole 10 MG TAB PO SCH (20:09)
[2023-03-03] MEDS: MONTELUKAST SODIUM 10 MG TABLET PO SCH (20:10)
[2023-03-03] MEDS: MAGNESIUM SULFATE / D5W 1 GM/100 ML BAG IV SCH ×2 (21:35→22:31)
[2023-03-04] MEDS: POLYETHYLENE (MIRALAX) 17 GM PACK PO SCH (05:39)
[2023-03-04 07:38] LABS: Basophils # (auto) 0.04 K/uL (0.00-0.20); Basophils % (auto) 0.4 %; Eosinophils # (auto) 0.07 K/uL (0.00-0.50); Eosinophils % (auto) 0.8 %; Hematocrit (blood only) 38.2 % (42.0-52.0); Hemoglobin 13.1 g/dl (14.0-18.0); Immature Granulocytes # (auto) 0.03 K/uL (0.01-0.20); Immature Granulocytes % (auto) 0.3 %; Lymphocytes # (auto) 2.05 K/uL (1.20-3.40); Lymphocytes % (auto) 22.2 %; Mean Corpuscular Hemoglobin 29.6 pg (25.0-34.0); Mean Corpuscular Hgb Conc 34.3 g/dL (32.0-36.0); Mean Corpuscular Volume 86.2 fL (80.0-100.0); Mean Platelet Volume 10.5 fL (9.4-12.4); Monocytes # (auto) 1.02 K/uL (0.11-0.59); Neutrophils # (auto) 6.04 K/uL (1.40-6.50); Neutrophils % (auto) 65.3 %; Platelet Count 188 K/uL (130-400); RDW Coefficient of Variation 13.1 % (11.5-14.5); RDW Standard Deviation 40.9 fL (36.4-46.3); Red Blood Count 4.43 M/uL (4.70-6.10); White Blood Count 9.25 K/ul (4.8-10.8)
[2023-03-04 08:13] LABS: Albumin Globulin Ratio 1.5 (0.9-2); Albumin Level 3.8 gm/dl (3.4-5.0); BUN Creatinine Ratio 12.3 (10-20); Bilirubin,Total 0.7 mg/dl (0.2-1.0); Calcium 8.5 mg/dl (8.6-10.3); Creatinine Clr Calc Pharmacy 117.7 ml/min; Est GFR (African American) 101.2 ml/min; Est GFR (Non-African American) 87.4 ml/min; Globulin 2.6 gm/dl (2.5-4.0); Magnesium 1.9 mg/dl (1.7-2.4); Phosphorus 3.3 mg/dl (2.5-4.9); Potassium 3.8 mmol/L (3.5-5.1); Total Protein 6.4 gm/dl (6.0-8.3)
[2023-03-04] MEDS: busPIRone 5 MG TAB PO SCH ×2 (08:55→20:56)
[2023-03-04] MEDS: PROPRANOLOL HCL 10 MG TAB PO SCH (08:55)
[2023-03-04] MEDS: PANTOprazole 40 MG TAB PO SCH (08:55)
[2023-03-04] MEDS: dexAMETHasone 6 MG in SYRINGE 0 ML IV SCH (08:55)
[2023-03-04] MEDS: LOSARTAN POTASSIUM 50 MG TAB PO SCH (08:55)
[2023-03-04] MEDS: TOPIRAMATE 25 MG TAB PO SCH (08:55)
[2023-03-04] MEDS: lamoTRIgine 100 MG TAB PO SCH ×2 (08:55→20:56)
--- NOTE | 2023-03-04 11:10 | Orthopedic Progress Note ---
Date of Service March 04, 2023 Assessment & Plan (1) Neurogenic claudication due to lumbar spinal stenosis: Plan: This time continue physical therapy monitor his ADI output anticipate discharge home tomorrow. Admission and Anticipated Discharge Date Admission Date: March 02, 2023 Subjective Back pain controlled leg pain improved Physical Exam Physical Exam: Patient is in the chair at bedside appears comfortable. Is constricted testing. Results & Data Vital Signs (Past 12 Hours) Vital Signs Temp Pulse Resp BP Pulse Ox O2 Del Method 03/04/23 07:05 36.5 C 72 18 126/77 99 Room Air Queries Orthopedic Spine Obesity: Yes
--- NOTE | 2023-03-04 12:37 | Hospitalist Progress Note ---
Date of Service March 04, 2023 Assessment & Plan (1) Neurogenic claudication due to lumbar spinal stenosis: Plan: Patient is a 42-year-old male with history of seizure disorder, obesity, hypertension, hyperlipidemia, GERD, schizoaffective disorder, erectile dy sfunction, JILL on CPAP, asthma, restless leg syndrome, anxiety disorder who is s/p lumbar surgery by Dr. Galan on 03/02/2023. Lumbar spinal stenosis with neurogenic claudication S/P lumbar surgery by Dr. Galan on 03/02/2023 POD #2 Pain is controlled Post OP anemia stable Bowel regimen to prevent constipation Activity & DVT Px and wound Care as per Primary team IV fluids discontinued PT/OT Fall precautions Seizure disorder Schizoaffective disorder Mood disorder Last seizure many years ago Continue home medication Hypertension Continue losartan GERD Continue PPI Obesity BMI 34 JILL Continue CPAP HS Diet: Regular DVT Px: SCDs per Primary team Code Status: Full Code Thank you for this consultation. We will follow the patient with you during their hospital stay. You can reach a member of the [facility] Hospitalist Team 23/10 via the hospitalist role on tiger text. Admission and Anticipated Discharge Date Admission Date: March 02, 2023 Subjective Pt seen in the AM, sitting in chair at bedside. Daughter/family member present in room. Denied acute concerns. Review of Systems Review of Systems: All systems reviewed & are unremarkable except as noted in Subjective Physical Exam Physical Exam: General: Alert, oriented. No acute distress Skin: No noted rashes or bruises Psych: Appropriate mood and affect Neuro: Difficulty leaning forward HEENT: NC/AT Chest: Nontender to palpation. CV: RRR Resp: Breath sounds clear bilaterally Abdomen: Soft, nontender, nondistended. Extremities: No edema in lower extremities bilaterally. Results & Data Results & Data Vital Signs (Past 12 Hours) Vital Signs Temp Pulse Resp BP Pulse Ox O2 Del Method 03/04/23 07:05 36.5 C 72 18 126/77 99 Room Air
[2023-03-04] MEDS: traMADol HCL 50 MG TABLET PO PRN (17:09)
[2023-03-04] MEDS: MONTELUKAST SODIUM 10 MG TABLET PO SCH (20:56)
[2023-03-04] MEDS: DOCUSATE SODIUM/SENNA 50/8.6MG TAB PO SCH (20:56)
[2023-03-04] MEDS: ARIPiprazole 10 MG TAB PO SCH (20:56)
[2023-03-04] MEDS: TOPIRAMATE 50 MG TAB PO SCH (20:56)
[2023-03-05 06:43] LABS: Basophils # (auto) 0.03 K/uL (0.00-0.20); Basophils % (auto) 0.3 %; Eosinophils # (auto) 0.11 K/uL (0.00-0.50); Eosinophils % (auto) 1.2 %; Hematocrit (blood only) 36.6 % (42.0-52.0); Hemoglobin 12.5 g/dl (14.0-18.0); Immature Granulocytes # (auto) 0.05 K/uL (0.01-0.20); Immature Granulocytes % (auto) 0.6 %; Lymphocytes # (auto) 2.12 K/uL (1.20-3.40); Lymphocytes % (auto) 23.9 %; Mean Corpuscular Hemoglobin 29.6 pg (25.0-34.0); Mean Corpuscular Hgb Conc 34.2 g/dL (32.0-36.0); Mean Corpuscular Volume 86.5 fL (80.0-100.0); Mean Platelet Volume 10.9 fL (9.4-12.4); Monocytes # (auto) 0.88 K/uL (0.11-0.59); Monocytes % (auto) 9.9 %; Neutrophils # (auto) 5.67 K/uL (1.40-6.50); Neutrophils % (auto) 64.1 %; Platelet Count 206 K/uL (130-400); RDW Standard Deviation 40.7 fL (36.4-46.3); Red Blood Count 4.23 M/uL (4.70-6.10); White Blood Count 8.86 K/ul (4.8-10.8)
[2023-03-05 07:04] LABS: Albumin Globulin Ratio 1.4 (0.9-2); Albumin Level 3.8 gm/dl (3.4-5.0); BUN Creatinine Ratio 15.2 (10-20); Bilirubin,Total 0.8 mg/dl (0.2-1.0); Calcium 9.1 mg/dl (8.6-10.3); Creatinine Clr Calc Pharmacy 111.4 ml/min; Est GFR (African American) 94.7 ml/min; Est GFR (Non-African American) 81.7 ml/min; Globulin 2.8 gm/dl (2.5-4.0); Magnesium 1.8 mg/dl (1.7-2.4); Potassium 3.8 mmol/L (3.5-5.1); Total Protein 6.6 gm/dl (6.0-8.3)
[2023-03-05] MEDS: busPIRone 5 MG TAB PO SCH (08:07)
[2023-03-05] MEDS: LOSARTAN POTASSIUM 50 MG TAB PO SCH (08:08)
[2023-03-05] MEDS: TOPIRAMATE 25 MG TAB PO SCH (08:08)
[2023-03-05] MEDS: PANTOprazole 40 MG TAB PO SCH (08:09)
[2023-03-05] MEDS: lamoTRIgine 100 MG TAB PO SCH (08:09)
[2023-03-05] MEDS: PROPRANOLOL HCL 10 MG TAB PO SCH (08:09)
[2023-03-05] MEDS: dexAMETHasone 6 MG in SYRINGE 0 ML IV SCH ×2 (09:14→09:30)
--- NOTE | 2023-03-05 10:30 | Discharge Summary ---
Date of Service March 05, 2023 Admission HPI Per Admitting Provider This is a 42-year-old male who presents with chronic persistent back and leg pain after failing course of nonoperative care is here for surgical invention. Principal Diagnosis Lumbar spinal stenosis with neurogenic claudication Discharge Data Allergies Allergy/AdvReac Type Severity Reaction Status Date / Time No Known Allergies Allergy Unknown Verified 03/02/23 06:27 Consultations 03/02/23 11:40 Consult Hospitalist Routine Procedures Performed Operation Date: 03/02/23 07:45 Actual Procedures p L4-L5 Decompression and Fusion, Spinal Cord Monitoring(Not Applicable) - Dylan Galan DO s L5-S1 Hardware Removal, (Not Applicable) - Dylan Galan DO Ordered Studies 03/02/23 07:45 FL lumbar spine 2-3V Routine Hospital Course (1) Neurogenic claudication due to lumbar spinal stenosis: Patient 1 lumbar decompression fusion tolerated this well was taken to the orthopedic floor postoperatively postop Ankush progressed appropriately. Pain well controlled. Strength intact. ADI drain decreasing appropriate. Subsequently discharged home. Discharge orders instructions from the chart for further review. Total Time Total Time Spent Total Time Spent (In Minutes): 20 minutes Discharge Plan Discharge Items Patient Disposition: Home - Self-Care Reason For Visit: Lumbar Disc Herniation with Radiculopathy Discharge Diagnosis: Lumbar spinal stenosis with neurogenic claudication Activity: As commented below Non-emergency contact: Primary Care Provider Call non-emergency contact if: you have any medication questions Follow-up/Referrals: Bernardino Holley MD [Primary Care Provider] - Diet: Regular Addtl Attending Provider Instructions: ACTIVITY RECOMMENDATIONS: SELF CARE INSTRUCTIONS AFTER THORACIC/LUMBAR FUSIONS 1. You may walk to your tolerance. It is good exercise for your legs and back. Expect some back and intermittent leg aches and pains. 2. You may perform "counter-top" level activities (make a sandwich, tyler with a project, etc.). 3. No bending or lifting of more than 10 pounds or back twisting of any nature (roll like a log when turning in bed). 4. You may ride in a car for 20-30 minutes at a time. No driving until after your first visit with your doctor. 5. Frequent changes of position and restricting sitting to 30 minutes at a time will help limit the amount of back spasms and stiffness you may experience. 6. You may discontinue the use of ambulatory aids (cane, crutches, etc.) once your strength and confidence allow. 7. You may cloth edge singer the shower and let water strike your incision when you arrive home at least once daily. Do not take a tub bath, sit in a hot tub or go into a swimming pool until after your first recheck in the office. SPECIAL CARE INSTRUCTIONS: VERY IMPORTANT TO READ AND REVIEW A. Your surgical incision has been closed with a cosmetic suture under the skin that will dissolve in about 6 weeks. In 14 days, you can use a pair of clean scissors and cut the suture that is left outside of the skin at the ends of your incision. 1. The small skin tapes can be removed 7 days after surgery if they have not fallen off by that point. 2. You may keep the wound open to air as much as possible to promote healing after post-op day number 5 unless told otherwise by your doctor. 3. If you think the wound looks like it is becoming infected (redness or worsening drainage) and/or you are experiencing fever, chill or worsening back pain and muscle spasms, contact the office so that we may evaluate you as soon as possible. B. Complications are uncommon, but please contact us if you have any signs or symptoms of: 1. wound infection (fever higher than 102.5 degrees F, redness, separation of wound, drainage, or increasing pain from the incision) 2. blood clots in legs (pain, swelling, redness and warmth in legs) 3. urinary tract infection (fever higher than 102.5 degrees F, burning upon urination or increased frequency of urination) 4. nerve problems (inability to walk on your toes or heels, numbness, loss of bowel or bladder control) 5. any other symptoms that concern you C. Please call the office at if you have any concerns or questions about your operation or recovery. D. No smoking! Smoking drastically decreases the chance of a solid fusion. E. Do not take any anti-inflammatory medications (Indocin, Advil, Motrin, Aspirin, Naprosyn, etc.) as these may inhibit the chance of a solid fusion. Tylenol is okay to take for pain. MANAGING PAIN AFTER SPINAL SURGERY 1. Narcotic medication is intended for short-term use and will be provided for surgical pain. Surgical pain usually lasts for a period of 4-6 weeks. Narcotic medication includes Percocet, Vicodin, Darvocet, Tylenol #3 or Lortab. 2. Longer-term pain is more appropriately treated with non-narcotic medication such as Tylenol ES. 3. Muscle spasm is not appropriately treated with narcotics. Muscle relaxers such as Soma, Flexeril or Skelaxin can be used along with Tylenol ES. 4. Remember that we all live with some "aches and pains". This is not unusual or uncommon after an injury or as we get older. a. Back pain is expected and may include muscle spasms for 4 to 6 weeks after surgery. The pain should gradually improve. If the pain worsens for no apparent reason, please contact the office. b. Intermittent leg pain may also be experienced and should not be concerned about unless it worsens for no apparent reason. If so, please contact the office. 5. We will provide appropriate medication within the normal guidelines of their prescribed use. We will also be very cautious and aware of potential abuse and extended duration of patients' medication needs. a. Pain medications are for your comfort and to assist with sleep and rest so that the tissue can heal. They are not provided in order to return to normal activity and should not be used through the day. To do so or worsening pain at night can result from ongoing tissue damage and development of tolerance to the prescribed medicine. 6. Please allow 2-3 days to process refills. Prescriptions will not be mailed but must be picked up at the office. FOLLOW UP VISIT: Keep your scheduled follow-up appointment. Any questions, please call the office at . Pending Studies at Discharge: No Stand-Alone Forms: My [facility], Smoking Cessation Medications and DC Order Prescriptions: New tramadol 50 mg tablet 50 mg PO Q6H PRN (Reason: pain, moderate) Qty: 30 0RF oxycodone 5 mg tablet 5 mg PO Q6H PRN (Reason: pain) Qty: 30 0RF Continued losartan 50 mg Tablet 50 mg PO QAM omeprazole 40 mg Capsule,Delayed Release(Dr/Ec) 40 mg PO QAM propranolol 10 mg Tablet 10 mg PO QAM topiramate [Topamax] 25 mg Capsule, Sprinkle 25 mg PO UD Rx Instructions: one tab in am and two tab in pm buspirone 10 mg Tablet 20 mg PO BID montelukast [Singulair] 10 mg Tablet 10 mg PO PM lamotrigine 100 mg Tablet 100 mg PO BID aripiprazole [Abilify] 10 mg Tablet 10 mg PO HS Discharge Orders: Discharge Order (Routine); Ordered 03/05/23 Ordered By: Dylan Galan Admission Data Admit Date/Time: 03/02/23 10:14 Attending Provider: Dylan Galan Admit Provider: Dylan Galan Primary Care Provider: Bernardino Holley Other Providers: Rosemarie Garcia; Sara Razo
--- NOTE | 2023-03-05 13:11 | Hospitalist Progress Note ---
Date of Service March 05, 2023 Assessment & Plan (1) Neurogenic claudication due to lumbar spinal stenosis: Plan: Patient is a 42-year-old male with history of seizure disorder, obesity, hypertension, hyperlipidemia, GERD, schizoaffective disorder, erectile dy sfunction, JILL on CPAP, asthma, restless leg syndrome, anxiety disorder who is s/p lumbar surgery by Dr. Galan on 03/02/2023. Lumbar spinal stenosis with neurogenic claudication S/P lumbar surgery by Dr. Galan on 03/02/2023 POD #3 Pain is controlled Post OP anemia stable Bowel regimen to prevent constipation Activity & DVT Px and wound Care as per Primary team IV fluids discontinued PT/OT Fall precautions Seizure disorder Schizoaffective disorder Mood disorder Last seizure many years ago Continue home medication Hypertension Continue losartan GERD Continue PPI Obesity BMI 34 JILL Continue CPAP HS Diet: Regular DVT Px: SCDs per Primary team Code Status: Full Code Thank you for this consultation. We will follow the patient with you during their hospital stay. You can reach a member of the [facility] Hospitalist Team 23/10 via the hospitalist role on tiger text. (2) Depression: (3) Dyslipidemia: (4) GERD (gastroesophageal reflux disease): (5) Hypertension: (6) Seizure: Admission and Anticipated Discharge Date Admission Date: March 02, 2023 Subjective Pt seen in the AM, standing at bedside, getting ready for discharge. Family members present in room. Had BM the day before Denied acute concerns. Review of Systems Review of Systems: All systems reviewed & are unremarkable except as noted in Subjective Physical Exam Physical Exam: General: Alert, oriented. No acute distress Skin: No noted rashes or bruises Psych: Appropriate mood and affect Neuro: standing and walking around the room HEENT: NC/AT Chest: Nontender to palpation. CV: RRR Resp: Breath sounds clear bilaterally Abdomen: Soft, nontender, nondistended. Extremities: No edema in lower extremities bilaterally. Results & Data Results & Data Vital Signs (Past 12 Hours) Vital Signs Temp Pulse Pulse Resp BP Pulse Ox O2 Del Method 03/05/23 08:06 58 L 125/78 98 Room Air 03/05/23 07:33 36.6 C 57 L 16 125/76 99 Room Air
== END 2023-03-05 12:02 | disposition home or self-care (01) | DRG 455 ==
LOC: ASU 06:02 → 3E 10:14